=== PATIENT | male | born 1960 | race Asian ===

== ENCOUNTER 2018-06-28 23:20 | Inpatient (IN) | payer SELFPAY ==
[~2018-06-28] VITALS: Ht 162.6 cm; Wt 60.8 kg
[~2018-06-28 23:20] MED LIST: ALBU90OI INH; CYCL10 PO; Daily Multiple1 EACH PO; HYDACE5 PO; HYDCHL12.5 PO; LISI5 PO; Naprosyn500 MG PO; Norco 5-325 Ta1 EACH PO; OXYC5 PO; SERT25 PO; SERT50 PO; Senna8.6 MG PO; TIOT18 INH; TRAZ100 PO; TRAZ50 PO
[2018-06-28 23:54] LABS: BASOPHILS ABSOLUTE AUTO 0.01 K/mm3 (0.00-0.23); BASOPHILS PERCENT AUTO 0 % (0-2); EOSINOPHILS PERCENT AUTO 0 % (0-6); Hematocrit 41.2 % (37.0-53.0); Hemoglobin 14.1 g/dL (13.5-17.5); IMMATURE GRAN ABSOLUTE AUTO 0.01 K/mm3 (0.00-0.10); IMMATURE GRAN PERCENT AUTO 0 % (0-1); LYMPHOCYTES ABSOLUTE AUTO 0.94 K/mm3 (0.84-5.20); LYMPHOCYTES PERCENT AUTO 13 % (21-46); MONOCYTES PERCENT AUTO 4 % (4-13); Mean Corpuscular HGB 33.2 pg (26.0-34.0); Mean Corpuscular HGB Conc 34.2 g/dL (31.5-36.5); Mean Corpuscular Volume 97 fL (80-100); Mean Platelet Volume 8.6 fL (9.1-12.4); NEUTROPHILS ABSOLUTE AUTO 6.05 K/mm3 (1.96-9.15); NEUTROPHILS PERCENT AUTO 83 % (41-73); Platelet Count 145 K/mm3 (150-400); RDW Coefficient Variation 12.8 % (11.7-14.2); Red Blood Cell Count 4.25 M/mm3 (4.30-5.90); White Blood Cell Count 7.31 K/mm3 (4.00-11.30)
[2018-06-28] MEDS ORDERED: DOXY100 PO (23:54)
[2018-06-28] MEDS ORDERED: ALBU90OI INH (23:54)
[2018-06-29 00:11] LABS: Alanine Aminotransfer (ALT/SGP 52 U/L (12-78); Albumin, Blood 3.5 g/dL (3.4-5.0); Albumin/Globulin Ratio 0.9 (0.8-1.8); Alk Phos 107 U/L (50-136); Anion Gap 9 mmol/L (6-16); Aspartate Aminotrans (AST/SGOT 53 U/L (12-37); Bilirubin, Total 0.3 mg/dL (0.1-1.0); Blood Urea Nitrogen 12 mg/dL (8-24); Bun/Creatinine Ratio 19.1 (12.0-20.0); CO2, Blood 24 mmol/L (21-32); Calcium, Blood 8.5 mg/dL (8.5-10.1); Chloride, Blood 108 mmol/L (98-108); Creatinine, Blood 0.63 mg/dL (0.60-1.20); Globulin, Blood 3.8 g/dL (2.2-4.0); Glomerular Filtration Rate >60 (60-); Glucose, Blood 112 mg/dL (70-99); Potassium, Blood 3.5 mmol/L (3.5-5.5); Sodium, Blood 141 mmol/L (136-145); Total Protein, Blood 7.3 g/dL (6.4-8.2)
[2018-06-29 00:43] LABS: Magnesium, Blood 1.7 mg/dL (1.6-2.4); Troponin I <0.015 ng/mL (0.000-0.040)
[2018-06-29 00:50] LABS: PCO2 Arterial 33.5 mmHg (35-45); PO2 Arterial 62.4 mmHg (80-100); pH Blood Arterial 7.45 (7.35-7.45)
--- NOTE | 2018-06-29 03:32 | NUR ---
ASSUMPTION OF CARE: Pt arrived to ICU at 0205. Pt is alert, oriented and following commands, on BiPAP 12/6/25%, O2 96% with respirations in the 30's and prominent wheezes throughout. Pt sts SOB but feels improved since arrival to ED. HR SIT in the 140's. Hour long neb started by RT Villarreal. Call placed to Dr Aguiar obtained order PRN ativan, 0.5mg given with good effect noted. Call light in reach, instructed pt to not get out of bed. Family at bedside, will continue to monitor for safety and comfort.
--- NOTE | 2018-06-29 06:42 | NUR ---
SHIFT SUMMARY: Pt slept well throughout remainder of shift following x1 PRN ativan for anxiety. Tolerating BiPAP w/o difficulty, settings remain 12/6/25%, O2 93-99%, no signs of SOB/dyspnea when sleeping. Overall audible wheezing and work of breathing improved throughout shift. HR NSR to SIT 95-120. IV's remain patent and intact.
[2018-06-29 07:57] LABS: Adenovirus Detected (NOT DETECT); Bordetella pertussis Not Detected (NOT DETECT); Chlamydophila pneumoniae Not Detected (NOT DETECT); Coronavirus 229E Not Detected (NOT DETECT); Coronavirus HKU1 Not Detected (NOT DETECT); Coronavirus NL63 Not Detected (NOT DETECT); Coronavirus OC43 Not Detected (NOT DETECT); Human Metapneumovirus Not Detected (NOT DETECT); Human Rhinovirus/Enterovirus Not Detected (NOT DETECT); Influenza A Not Detected (NOT DETECT); Influenza A/2009-H1 Not Detected (NOT DETECT); Influenza A/H1 Not Detected (NOT DETECT); Influenza A/H3 Not Detected (NOT DETECT); Influenza B Not Detected (NOT DETECT); Mycoplasma pneumoniae Not Detected (NOT DETECT); Parainfluenza Virus 1 Not Detected (NOT DETECT); Parainfluenza Virus 2 Not Detected (NOT DETECT); Parainfluenza Virus 3 Not Detected (NOT DETECT); Parainfluenza Virus 4 Not Detected (NOT DETECT); Respiratory Syncytial Virus Not Detected (NOT DETECT)
--- NOTE | 2018-06-29 10:54 | NUR ---
PT ON BIPAP 01/10, FIO2 25%. SATS 98%. PT SLEEPING, AWAKENS TO VOICE. DENIES C/O PAIN. PT RESP 30-40, WITH WHEEZES T/O. PT TAKEN OFF BIPAP TO ASSESS RESP EFFORT, GIVE PO MEDS, AND FOR ORAL CARE. PT RESP INCREASED TO HIGH 40'S, BREATHING VERY LABORED, WITH INCREASED WHEEZING T/O. BIPAP OFF FOR ONLY A COUPLE OF MIN BEFORE IT WAS REPLACED. DR WAYNE IN TO SEE PT THIS AM; DR FREY CONSULTED THIS AM FOR RESP DISTRESS. PT TOLERATING BIPAP WELL AT THIS POINT. PT GIVEN SEVERAL MEDS INCLUDING SUPPOSITORY FOR SEVERE CONSTIPATION. WILL KEEP PT NPO EXCEPT FOR PO MEDS.
[2018-06-29 13:24] LABS: Hematocrit 36.7 % (37.0-53.0); Hemoglobin 11.9 g/dL (13.5-17.5); Mean Corpuscular HGB 33.1 pg (26.0-34.0); Mean Corpuscular HGB Conc 32.4 g/dL (31.5-36.5); Platelet Count 130 K/mm3 (150-400); RDW Coefficient Variation 13.3 % (11.7-14.2); RDW Standard Deviation 50.3 fL (35.1-46.3); Red Blood Cell Count 3.59 M/mm3 (4.30-5.90); White Blood Cell Count 7.19 K/mm3 (4.00-11.30)
[2018-06-29 13:32] LABS: Mean Corpuscular Volume 102 fL (80-100)
[2018-06-29 13:54] LABS: Alanine Aminotransfer (ALT/SGP 42 U/L (12-78); Albumin/Globulin Ratio 0.9 (0.8-1.8); Alk Phos 92 U/L (50-136); Anion Gap 8 mmol/L (6-16); Aspartate Aminotrans (AST/SGOT 47 U/L (12-37); Bilirubin, Total 0.2 mg/dL (0.1-1.0); Blood Urea Nitrogen 11 mg/dL (8-24); Bun/Creatinine Ratio 17.5 (12.0-20.0); CO2, Blood 20 mmol/L (21-32); Calcium, Blood 7.7 mg/dL (8.5-10.1); Chloride, Blood 113 mmol/L (98-108); Creatinine, Blood 0.63 mg/dL (0.60-1.20); Globulin, Blood 3.3 g/dL (2.2-4.0); Glomerular Filtration Rate >60 (60-); Glucose, Blood 203 mg/dL (70-99); Potassium, Blood 4.4 mmol/L (3.5-5.5); Sodium, Blood 141 mmol/L (136-145); Total Protein, Blood 6.3 g/dL (6.4-8.2)
--- NOTE | 2018-06-29 15:11 | NUR ---
BIPAP MASK REMOVED FOR PO MED AND ORAL CARE. PT DID NOT TOLERATE WELL. RESP INCREASED TO HIGH 40'S W AUDIBLE WHEEZES T/O, RESP VERY LABORED. BIPAP REPLACED IMMEDIATELY. DR FREY NOTIFIED. PT SATS DID DROP TO 90% ON 2L VIA N/C. PT ALSO DID NOT TOLERATE TURN W SHEET CHANGE ON BIPAP. LORAZEPAM 1MG IVP GIVEN. PT'S AT [facility].
[2018-06-29] MEDS ORDERED: MOME220I INH (15:44)
[2018-06-29] MEDS ORDERED: MIRT30 PO (15:44)
[2018-06-29] MEDS ORDERED: Hair, Skin & N1 EACH PO (15:45)
[2018-06-29] MEDS ORDERED: Naltrexone HCl50 MG PO (15:46)
[2018-06-29] MEDS ORDERED: STRIVERDI RESPIM4 GM INH (15:46)
[2018-06-29] MEDS ORDERED: B-1100 MG PO (16:02)
[2018-06-29] MEDS ORDERED: Viagra100 MG PO (16:02)
[2018-06-29] MEDS ORDERED: PRED10 PO (16:03)
[2018-06-29] MEDS ORDERED: CLON.1 PO (16:04)
[2018-06-29] MEDS ORDERED: DISU250 PO (16:05)
[2018-06-29] MEDS ORDERED: GENTEAL TEARS 015 ML BOTHEYES (16:05)
[2018-06-29] MEDS ORDERED: FOLI1 PO (16:06)
[2018-06-29] MEDS ORDERED: DULO30 PO (16:06)
[2018-06-29] MEDS ORDERED: GABA300 PO ×2 (16:07→16:08)
[2018-06-29] MEDS ORDERED: HYDACE25S PR (16:08)
[2018-06-29] MEDS ORDERED: IBUP600 PO (16:09)
[2018-06-29] MEDS ORDERED: MELA3 PO (16:10)
--- NOTE | 2018-06-29 19:30 | NUR ---
ASSUMPTION OF CARE: Pt alert and oriented, on BiPAP set to 12/25% with 02 96% and respirations 33. HR 92 NSR and BP stable. sts mild low back pain of 4/10, releived with repositioning. Pt respirations increased to 40's with activity. Peripheral IV to LFA patent and intact, SL. Powerglide to Rt upper arm patent and intact.
[2018-06-30 03:47] LABS: BASOPHILS PERCENT AUTO 0 % (0-2); EOSINOPHILS PERCENT AUTO 0 % (0-6); IMMATURE GRAN ABSOLUTE AUTO 0.02 K/mm3 (0.00-0.10); IMMATURE GRAN PERCENT AUTO 0 % (0-1); LYMPHOCYTES ABSOLUTE AUTO 0.82 K/mm3 (0.84-5.20); LYMPHOCYTES PERCENT AUTO 14 % (21-46); MONOCYTES ABSOLUTE AUTO 0.22 K/mm3 (0.16-1.47); MONOCYTES PERCENT AUTO 4 % (4-13); Mean Corpuscular HGB 33.4 pg (26.0-34.0); Mean Corpuscular HGB Conc 34.4 g/dL (31.5-36.5); Mean Platelet Volume 8.8 fL (9.1-12.4); NEUTROPHILS ABSOLUTE AUTO 4.98 K/mm3 (1.96-9.15); NEUTROPHILS PERCENT AUTO 83 % (41-73); Platelet Count 129 K/mm3 (150-400); RDW Coefficient Variation 13.1 % (11.7-14.2); RDW Standard Deviation 47.1 fL (35.1-46.3); Red Blood Cell Count 3.29 M/mm3 (4.30-5.90); White Blood Cell Count 6.04 K/mm3 (4.00-11.30)
[2018-06-30 03:49] LABS: Mean Corpuscular Volume 97 fL (80-100)
[2018-06-30 04:01] LABS: Anion Gap 4 mmol/L (6-16); Blood Urea Nitrogen 11 mg/dL (8-24); Bun/Creatinine Ratio 19.4 (12.0-20.0); CO2, Blood 27 mmol/L (21-32); Calcium, Blood 7.7 mg/dL (8.5-10.1); Chloride, Blood 111 mmol/L (98-108); Creatinine, Blood 0.57 mg/dL (0.60-1.20); Glomerular Filtration Rate >60 (60-); Glucose, Blood 193 mg/dL (70-99); Potassium, Blood 4.6 mmol/L (3.5-5.5); Sodium, Blood 142 mmol/L (136-145)
--- NOTE | 2018-06-30 05:59 | NUR ---
SHIFT SUMMARY: Pt tolerated BiPAP well throughout shift, set at 12/6/25%, VSS. Respirations remain 17-20's while resting increasing to 30's with activity. Pt slept throughout shift, easily rousable and alert and oriented while awake. Pt was able to tolerate short breaks from BiPAP for small sips of water and oral medications. Peripheral IV's remain patent and intact.
--- NOTE | 2018-06-30 07:47 | NUR ---
PT SLEEPING, AROUSES TO VOICE. LUNGS TIGHT W SCATTERED WHEEZES T/O, TOLERATING BIPAP WELL. RESP 20-30. DR WAYNE AT BEDSIDE. WILL ATTEMPT TO GIVE PT BREAK OF BIPAP TOLERATED TODAY.
--- NOTE | 2018-06-30 09:06 | NUR ---
PT TAKEN OFF BIPAP FOR BREAK AND PLACED ON 2L N/C. PT SOB WITH SPEECH, BUT TOLERATING BREAK BETTER THAN YESTERDAY. DR FREY IN TO SEE PT WHILE OFF BIPAP; CHEST X RAY ORDERED AND COMPLETED. 15MIN INTO BREAK PT REQUESTED TO USE BEDPAN. WITHIN TWO MIN AFTER PLACING ON BEDPAN PT WENT ONTO RESP DISTRESS, RESP 40-50, AUDIBLE WHEEZES T/O, SATS DROPPED INTO LOW 80'S, COLOR DUSKY. BIPAP IMMEDIATELY PLACED BACK ON PT, RT CALLED, DR FREY TO BEDSIDE TO ASSESS PT. ATIVAN 1MG, AND FENT 50MCG GIVEN ALONG W UDN THROUGH BIPAP. PRECEDEX ORDERED AND STARTED AT 0.5MCG. PT'S AT BEDSIDE. PT CALM W BIPAP ON AT THIS TIME, RESP 40, SATS 95% ON 30% FI02. HEART RATE 135, BP 151/88.
--- NOTE | 2018-06-30 10:29 | NUR ---
PT WENT INTO SEVERE RESP DISTRESS/FAILURE AROUND 1000; PRECEDEX AT 0.7MCG. DR FREY IN UNIT AND CAME TO BEDSIDE TO ASSESS PT. PT AND PT'S CONSENTED TO INTUBATION. PT INTUBATED AT 1016 W VERSED 10MG, PROPOFOL GTT. 7.5F ETT AT 25CM AT THE LIP. NS BOLUS BOLUS STARTED FOR SOME HYPOTENSION FOLLOWING INTUBATION. OG PLACED. SPUTUM SAMPLE SENT.
[2018-06-30 11:08] LABS: Source, Urine Catheter
[2018-06-30 11:14] LABS: Bilirubin, Urine Neg (Neg); Blood, Urine 1+ (Neg); Glucose Qualitative, Urine 1+ (Neg); Ketones, Urine Neg (Neg); Leukocyte Esterase, Urine Neg (Neg); Nitrite, Urine Neg (Neg); Protein, Urine 2+ (Neg); Specific Gravity, Urine 1.015 (1.003-1.022); Urobilinogen, Urine NORM (Normal)
[2018-06-30 11:18] LABS: Appearance, Urine Clear (Clear); Color, Urine Yellow (P-Yellow)
[2018-06-30 11:23] LABS: Bacteria Not Seen /hpf; Red Blood Cells, Urine Rare /hpf (0-2); Squamous Epithelial Cells Not Seen /hpf (Few)
[2018-06-30 11:24] LABS: White Blood Cells, Urine Not Seen /hpf (0-5)
[2018-06-30 11:56] LABS: Albumin, Blood 2.5 g/dL (3.4-5.0); Anion Gap 5 mmol/L (6-16); Blood Urea Nitrogen 11 mg/dL (8-24); CO2, Blood 27 mmol/L (21-32); Calcium, Blood 7.3 mg/dL (8.5-10.1); Chloride, Blood 110 mmol/L (98-108); Creatinine, Blood 0.61 mg/dL (0.60-1.20); Glomerular Filtration Rate >60 (60-); Glucose, Blood 176 mg/dL (70-99); Phosphorus, Blood 2.3 mg/dL (2.5-4.9); Potassium, Blood 3.8 mmol/L (3.5-5.5); Sodium, Blood 142 mmol/L (136-145)
--- NOTE | 2018-06-30 13:21 | NUR ---
PT SEDATED W PROPOFOL AT 60MCG, PRECEDEX AT 07.MCG, AND PRN FENT/VERSED IVP. PT AROUSES WITH MOVEMENT AND BECOMES AGITATED WITH HARSH COUGHING, STACKING BREATHS, INCREASED RESP, SITTING UP IN BED, PULLING ON RESTRAINTS. MCKEON CATH TEMP PROBE 16F PLACED. PT FEBRILE AT 101.5; TYLENOL PT GIVEN.
[2018-06-30 15:49] LABS: PO2 Arterial 76.7 mmHg (80-100)
--- NOTE | 2018-06-30 17:05 | NUR ---
BACK FROM CT OF CHEST; PT TOLERATED TRANSFER AND PROCEDURE WELL; REMAINED SEDATED T/O WITH VSS. TF STARTED AT 20ML/HR WHICH IS GOAL RATE. PROPOFOL AT 60MCG, PRECEDEX GTT AT 0.7MCG.
--- NOTE | 2018-06-30 22:40 | NUR ---
ASSUMPTION OF CARE: Assumed care of pt @ 1900. Pt intubated and sedated, vent set to AC 14/400/5/35%, pt tachypneic with respirations 20-30's, VSS. Peripheral IV x3 patent and intact. Covington catheter in place, draining clear yellow urine. During initial assessment @ approx 193, pt was not responsive to painful stimuli, gag and cough reflexes absent, propofol decreased at this time. At approx 2029, began excessively coughing and breath stacking, not improved with suctioning. PRN ativan and versed given with good effect noted. 2129 residuals noted at 350, readministered 250mL and discarded 100mL. Continuous tube feeding held for 1-2 pending reassessment of residuals.
--- NOTE | 2018-07-01 00:36 | NUR ---
POSSIBLE FLASH PULMONARY EDEMA/CALL TO DR FREY While providing care to pt increased vent peaks in the low 40's were noted. Pt was producing moderate amount of frothy secretions, coarse lung sounds were asucultated. Call was placed to Jen in RT, PEEP was increased to 10. Primary RN, Antolin, placed D5LR on standby. Peak pressures decreased to low 30's and lung sounds improved. A call was placed to Dr Frey at approx 0030 for concerns of possible flash pulmonary edema. Dr Frey ordered 20mg Lasix IV x1, DC'd IV maintenance fluids, maintain PEEP of 10, and an ABG in the morning.
[2018-07-01 04:12] LABS: BASOPHILS PERCENT AUTO 0 % (0-2); EOSINOPHILS PERCENT AUTO 0 % (0-6); Hematocrit 33.9 % (37.0-53.0); Hemoglobin 11.6 g/dL (13.5-17.5); Mean Corpuscular HGB 32.7 pg (26.0-34.0); Mean Corpuscular HGB Conc 34.2 g/dL (31.5-36.5); Mean Corpuscular Volume 96 fL (80-100); Mean Platelet Volume 9.1 fL (9.1-12.4); Platelet Count 137 K/mm3 (150-400); RDW Coefficient Variation 13.1 % (11.7-14.2); RDW Standard Deviation 46.2 fL (35.1-46.3); Red Blood Cell Count 3.55 M/mm3 (4.30-5.90); White Blood Cell Count 3.53 K/mm3 (4.00-11.30)
[2018-07-01 04:21] LABS: IMMATURE GRAN ABSOLUTE AUTO 0.03 K/mm3 (0.00-0.10); IMMATURE GRAN PERCENT AUTO 1 % (0-1); LYMPHOCYTES ABSOLUTE AUTO 0.64 K/mm3 (0.84-5.20); LYMPHOCYTES PERCENT AUTO 18 % (21-46); MONOCYTES ABSOLUTE AUTO 0.16 K/mm3 (0.16-1.47); MONOCYTES PERCENT AUTO 5 % (4-13); NEUTROPHILS PERCENT AUTO 77 % (41-73)
[2018-07-01 04:36] LABS: PCO2 Arterial 34.5 mmHg (35-45); pH Blood Arterial 7.47 (7.35-7.45)
[2018-07-01 04:37] LABS: PO2 Arterial 44.5 mmHg (80-100)
[2018-07-01 04:47] LABS: Albumin, Blood 2.9 g/dL (3.4-5.0); Anion Gap 6 mmol/L (6-16); Blood Urea Nitrogen 12 mg/dL (8-24); CO2, Blood 27 mmol/L (21-32); Calcium, Blood 7.7 mg/dL (8.5-10.1); Chloride, Blood 108 mmol/L (98-108); Creatinine, Blood 0.63 mg/dL (0.60-1.20); Glomerular Filtration Rate >60 (60-); Glucose, Blood 149 mg/dL (70-99); Phosphorus, Blood 1.9 mg/dL (2.5-4.9); Potassium, Blood 3.2 mmol/L (3.5-5.5); Sodium, Blood 141 mmol/L (136-145)
--- NOTE | 2018-07-01 06:27 | NUR ---
SHIFT SUMMARY: See previous note related to increase peak and order of lasix. Pt continued to cough with frothy secretions and have increased peaks, requiring increased amounts of PRN ativan, versed and increased FiO2. Placed another call to Dr Miller, received orders for 40mg Lasix IV and to increase PEEP to 12-13 from 10. Vent settings made per RT Jen. Pt continued to cough vent and stack breaths despite increased sedation and PRN medications. RT Jen changed ventilator mode to pressure control. Pt tolerated pressure control without difficulty, decreased work of breathing, appears calm and comfortable, respiratory rate decreased from 40's to high 20's. VSS. Increased urine output noted following lasix. Tmax this shift of 101.8, PRN tylenol given with no effect. Ice packs applied to neck, axillary and groin. Temperature now decreased to 100.9. Potassium of 3.2 and phos of 1.9 with morning labs, call placed to Dr Miller. Received order for K-Phos 30mm IV x1. Will continue to monitor until report to day shift.
--- NOTE | 2018-07-01 07:05 | NUR ---
ASSUMED CARE: RECEIVED REPORT FROM NOC RN AND STUDENT. PT IS CURRENTLY NOTED TO BE ON VENT SETTINGS OF PRESSURE CONTROL, BACK UP RATE OF 14, PEEP OF 12 AND FIO2 OF 50% SATTING >88% PER ORDERS. PROPOFOL IS RUNNING AT 60 MCG/KG/MIN, PRECEDEX NOTED AT 1 MCG/KG/HR PER DR ORDERS. TEMP IS NOTED TO BE ELIVATED, ICE PACKS ARE IN PLACE. WILL CONTINUE TO MONITOR AND ASSESS FURTHER
--- NOTE | 2018-07-01 11:57 | NUR ---
eCHOCARDIOGRAM COMPLETED.
--- NOTE | 2018-07-01 13:00 | NUR ---
INCREASED RESP: PT RESPRATORY RATE IS NOTED TO BE MUCH MORE LABORED AND INCREASED >50. TEMP IS NOTED TO BE STEADALY INCREASING WITH INCREASED BREATHING. RECEIVED ONE TIME ORDER FOR IBUPROFEN FOR ELIVATED TEMP. VERSED DRIP ORDERED TO HELP DECREASE LABORED BREATHING. FIO2 INCREASED TO 60% AND LASIX ORDERED.
--- NOTE | 2018-07-01 18:29 | NUR ---
SHIFT SUMMARY: PT HAD SOME RESPRATORY DISTRESS THIS SHIFT HAVING DIFFICULTY KEEPING RESPIRATION RATE BELOW 50. VERSED DRIP WAS STARTED AND PT RESPIRATORY RATE HAD BEEN MAINTAINING IN THE 30'S WITH A MUCH LESS LABORED BREATHING PATTERN. FIO2 WAS INCREASED TO 60% IN ORDER TO MAINTAIN A O2 SAT >88%. PRECEDEX WAS TITRATED UP TO TO 1.4 MCB/KG/HR FOR A SHORT TIME, ORDERED BY DR FREY. TUBE FEEDING WAS HELD THIS MORNING D/T RESIDUAL >250ML. PT CONTINUED TO RECEIVE MEDICATIONS THROUGH THE OG TUBE T/O THE DAY. WILL CONTINUE TO HOLD TUBE FEEDINGS T/O NOC SHIFT WELL D/T INCREASED RESIDUAL OF 500ML. PICC LINE WAS PLACED THIS SHIFT. TEMP GOT HIGH 102.2, IBUPROFIN WAS ORDERED AND ICE BAGS CONTINUED TO BE PLACED, CURRENTLY TEMP IS NOTED AT 99.3 AT THIS TIME. WILL CONTINUE TO MONITOR AND REPORT TO NOC RN.
--- NOTE | 2018-07-01 19:30 | NUR ---
ASSESSMENT/ASSUMED CARE PT INTUBATED AND NO MECH VENT. CURRENT VENT SETTINGS PC 12 AC 14 PEEP 12 FIO2 60%. LUNGS WITH CRACKLES IN THE BASES AND DECREASED. SCANT AMT SUCTIONED VIA ET TUBE. ORAL CARE DONE. HEART RATE REGULAR. BP STABLE. AFEBRILE,ICE PACKS REMOVED. BT+ HYPOACTIVE. OG CLAMPED. NO RESIDUAL. TUBE FEEDING TO BE RESTRATED IN AM. MCKEON CATH PATENT DRAINING CLEAR YELLOW URINE. PICC LINE TO LEFT UPPER DRSG INTACT. PROPOFOL AT 60 MCQ/KG/MIN WITH PRECEDEX AT 1 MCQ/KG/HR. VERSED GTT AT 4 MG/HR WITH NS AT 15 ML/HR. REPOSITIONED TO LEFT WITH HOB UP. BILAT SOFT WRIST RESTRAINTS ON.
--- NOTE | 2018-07-01 20:12 | NUR ---
PT RESP RATE UP TO 49 AFTER TURNING. SPO2 DOWN TO 89%. MED WITH FENTANYL 50 MCQ FOR SEDATION ADJUNCT.
--- NOTE | 2018-07-01 20:15 | NUR ---
FIO2 INCREASED RT INCREASED FIO2 TO 65%.
--- NOTE | 2018-07-02 | NUR ---
REASSESSMENT PT CONT INTUBATED AND ON [facility], INCH VENT. CURRENT VENT SETTING PC 12 AC 14 PEEP 12 FIO2 65%. LUNGS CLEAR WITH CRACKLES AND DECREASED IN THE BASES. HEART RATE REGULAR. BP STABLE. BT+ HYPERACTIVE. OG CLAMPED. ZERO RESIDUAL. BLOOD GLUCOSE 280, INSULIN GIVEN. ORAL CARE DONE AND PT REPOSITIONED TO BACK WITH EXT ELEVATED. PROPFOL DECREASED TO 55 MCQ/KG/MIN
[2018-07-02 03:40] LABS: BASOPHILS PERCENT AUTO 0 % (0-2); EOSINOPHILS PERCENT AUTO 0 % (0-6); Hematocrit 35.3 % (37.0-53.0); Hemoglobin 12.5 g/dL (13.5-17.5); IMMATURE GRAN ABSOLUTE AUTO 0.04 K/mm3 (0.00-0.10); IMMATURE GRAN PERCENT AUTO 2 % (0-1); LYMPHOCYTES ABSOLUTE AUTO 0.59 K/mm3 (0.84-5.20); LYMPHOCYTES PERCENT AUTO 25 % (21-46); MONOCYTES ABSOLUTE AUTO 0.09 K/mm3 (0.16-1.47); MONOCYTES PERCENT AUTO 4 % (4-13); Mean Corpuscular HGB 33.7 pg (26.0-34.0); Mean Corpuscular HGB Conc 35.4 g/dL (31.5-36.5); Mean Corpuscular Volume 95 fL (80-100); Mean Platelet Volume 9.5 fL (9.1-12.4); NEUTROPHILS ABSOLUTE AUTO 1.61 K/mm3 (1.96-9.15); NEUTROPHILS PERCENT AUTO 69 % (41-73); Platelet Count 149 K/mm3 (150-400); RDW Coefficient Variation 12.9 % (11.7-14.2); RDW Standard Deviation 45.4 fL (35.1-46.3); Red Blood Cell Count 3.71 M/mm3 (4.30-5.90); White Blood Cell Count 2.33 K/mm3 (4.00-11.30)
[2018-07-02 05:26] LABS: PCO2 Arterial 33.6 mmHg (35-45); PO2 Arterial 58.3 mmHg (80-100); pH Blood Arterial 7.51 (7.35-7.45)
--- NOTE | 2018-07-02 05:54 | NUR ---
SHIFT SUMMARY PT RESTING QUIETLY. CONT INTUBATED AND ON [facility] VENT. VENT SETTINGS PC 12 AC 14 PEEP 12 FIO2 65%. LUNGS COARSE AND DECREASED. SUCTIONED MOD AMT VIA ET TUBE. HEART RATE REGULAR, BP STABLE. NO EDEMA. BT+ HYPERACTIVE. PT INCONT TWO LIQUID BROWN STOOLS DURING THE NIGHT. OG TUBE CLAMPED, NO RESIDUALS DURING THE NIGHT. TUBE FEEDING TO BE RESTARTED THIS AM AFTER RESIDUAL CHECK AT 0800. MCKEON CATH PATENT DRAINING CLEAR YELLOW URINE. TURNED Q2HR. POWER GLIDE TO RIGHT UPPER ARM SALINE LOCKED, SITE CLEAR. PICC LINE TO LEFT UPPER ARM WITH PRECEDEX AT 0.9 MCQ/KG/HR DOWN FROM 1 MCQ/KG/HR, PROPOFOL AT 50 MCQ/KG/MIN DOWN FROM 60 MCQ/KG/MIN. VERSED GTT 4 MG/HR WITH NS AT 15 ML/HR. REPORT TO ON COMING NURSE.
--- NOTE | 2018-07-02 06:20 | NUR ---
TEMP TEMP UP TO 100.2 EVEN AFTER TYLENOL GIVEN AT 0500. COOL CLOTH TO FOREHEAD WTIH FAN ON. ICE PACKS BEHIND NECK, UNDER ARMS AND TO GROIN.
--- NOTE | 2018-07-02 07:30 | NUR ---
Recieved report from Kylah MCKINNEY. Patient supine in bed with HOB at 30 degrees. He is intubated and sedated. He has 7.5 ET and 25cm at lips, RT in room retaping. His vent settings are Pressure control AC 14, P 12, FiO2 65% and PEEP 12.0 and sats mid 90%'s. He has PICC ROBERTO with dressing intact and site WNL's and infusing Propofol 50 mcg/kg/min, Versed 4ml/hr, Precedex 0.9 mcg/kg/hr, NS TKO for Versed. He also has PowerGlide in JEREMIAH dressing intact and site WNL's and is flushed and SL'd. He has OG in place and residuals were 0. He has 16Fr temp foss draining to gravity yellow urine. He has bilateral SCD's in place and LE elevated with pillow. He has bilateral soft wrist restraints, they were removed and circulation chaeck and skin and were replaced for safety of line, tubes and ET.
--- NOTE | 2018-07-02 09:30 | NUR ---
Patient has large liquid stool and after cleaning up patient very agitated and resp. demand increased. Increaed Precedex up to 1.4 mch/kg/hr andf Propofol to 65 mcg/kg/min. Dr Rivera in room with patient and is writing new orders. Blood pressure cuff moved to right ankle and am able to get real numbers there and right wrist started only giving MAPS. She is planning on stopping versed and Precedex and starting Nimbex and Fentanyl. He is starting to get hypertensive 180 systolic and jay are 88-90 with agitation. at bedside with Dr Rivera and she is explaining her plans and stated that he was really sick and will have better idea tomorrow group home.
--- NOTE | 2018-07-02 11:30 | NUR ---
Patient started on Nimbex at 1 mcg/kg/hr and to keep train of 3-4. I have increased to 2.5 mcg/kg/hr and he was changed to AC 20, TV 400, FiO2 60% and PEEP 12 with sats low 90%. He is still hypertensive and ST and Dr Perez feels with more pain control he numbers will decrease. Started Vanco and Zosyn now.
[2018-07-02 11:33] LABS: Alanine Aminotransfer (ALT/SGP 79 U/L (12-78); Albumin, Blood 2.6 g/dL (3.4-5.0); Albumin/Globulin Ratio 0.7 (0.8-1.8); Alk Phos 80 U/L (50-136); Anion Gap 5 mmol/L (6-16); Aspartate Aminotrans (AST/SGOT 114 U/L (12-37); Bilirubin, Total 0.3 mg/dL (0.1-1.0); Blood Urea Nitrogen 15 mg/dL (8-24); Bun/Creatinine Ratio 25.5 (12.0-20.0); CO2, Blood 31 mmol/L (21-32); Calcium, Blood 8.1 mg/dL (8.5-10.1); Chloride, Blood 106 mmol/L (98-108); Creatinine, Blood 0.59 mg/dL (0.60-1.20); Globulin, Blood 3.8 g/dL (2.2-4.0); Glomerular Filtration Rate >60 (60-); Glucose, Blood 135 mg/dL (70-99); Phosphorus, Blood 3.5 mg/dL (2.5-4.9); Potassium, Blood 4.2 mmol/L (3.5-5.5); Sodium, Blood 142 mmol/L (136-145); Total Protein, Blood 6.4 g/dL (6.4-8.2)
[2018-07-02 12:16] LABS: PCO2 Arterial 47.9 mmHg (35-45); PO2 Arterial 64.7 mmHg (80-100); pH Blood Arterial 7.38 (7.35-7.45)
--- NOTE | 2018-07-02 13:24 | NUR ---
Patient is more relaxed and ABG drawn and given to Dr Rivera and she is happy with number. Increased to FiO2 80% to keep sats over 90%. Decreased Nimbex to 1.0 to keep train of 3-4. Fentanyl increased to 100 mcg/hr. No other changes. RR down to 27.
--- NOTE | 2018-07-02 15:30 | NUR ---
Patient doing well on current drip of nimbex and 1 mcg/kg/hr and Propofol at 50 m cg/kg/min. Reduced FiO2 to 60%. Still getting frothy secretions from ET. Fentanyl gtt remains at 100 mcg/hr. VSS. His systolic has come down to 120's systolic and HR 110.
--- NOTE | 2018-07-02 17:30 | NUR ---
No real significant changes with patient , gtt's, or vent settings.
--- NOTE | 2018-07-02 18:53 | NUR ---
No family present when I visited several times today. Haider is non-responsive. He appears well cared-for and comfortable. Provided prayer at bedside at family request. I will continue to visit as schedule permits.
[2018-07-02 20:06] LABS: PCO2 Arterial 53.7 mmHg (35-45); PO2 Arterial 60.5 mmHg (80-100); pH Blood Arterial 7.32 (7.35-7.45)
--- NOTE | 2018-07-02 20:07 | NUR ---
ASSUMED CARE RECEIVED REPORT FROM EDMUNDO. PT IS CURRENTLY SEDATED AND PARALYZED; CURRENT GTTPS: PROPOFOL 50MCG/KG/MIN, NIMBEX 2MCG/KG/MIN, NS 15ML/HR, AND FENTANYL 100MCG/HR. PT ON VENTILATOR AC20/400/12/60%. VITAL HIGH INFUSING VIA OG TUBE AT GOAL, 25ML/HR, RESIDUALS WERE ~40ML. PT HAS ONE SCD ON, BP CUFF AROUND OTHER CALF. PT HAS ELEVATED TEMP: 100.2; ICE PACKS AND AIR CONDITIONER IN PLACE. MCKEON HANGING TO GRAVITY CONTAINING YELLOW, CLEAR URINE.
--- NOTE | 2018-07-03 00:47 | NUR ---
PT SAT'ING HIGH 80'S, LOW 90'S. FIO2 TURNED UP TO 70%, TURNED POSITION, CPT ON BED INITIATED. NO OTHER CHANGES AT THIS TIME.
[2018-07-03 03:27] LABS: BASOPHILS ABSOLUTE AUTO 0.02 K/mm3 (0.00-0.23); BASOPHILS PERCENT AUTO 1 % (0-2); EOSINOPHILS PERCENT AUTO 0 % (0-6); Hematocrit 41.5 % (37.0-53.0); Hemoglobin 13.6 g/dL (13.5-17.5); Mean Corpuscular HGB 33.1 pg (26.0-34.0); Mean Corpuscular HGB Conc 32.8 g/dL (31.5-36.5); Mean Platelet Volume 9.4 fL (9.1-12.4); Platelet Count 178 K/mm3 (150-400); RDW Coefficient Variation 13.7 % (11.7-14.2); RDW Standard Deviation 50.8 fL (35.1-46.3); Red Blood Cell Count 4.11 M/mm3 (4.30-5.90)
[2018-07-03 03:28] LABS: IMMATURE GRAN PERCENT AUTO 3 % (0-1); LYMPHOCYTES ABSOLUTE AUTO 0.59 K/mm3 (0.84-5.20); LYMPHOCYTES PERCENT AUTO 18 % (21-46); MONOCYTES ABSOLUTE AUTO 0.09 K/mm3 (0.16-1.47); MONOCYTES PERCENT AUTO 3 % (4-13); Mean Corpuscular Volume 101 fL (80-100); NEUTROPHILS PERCENT AUTO 75 % (41-73)
[2018-07-03 03:45] LABS: Alanine Aminotransfer (ALT/SGP 99 U/L (12-78); Albumin, Blood 2.1 g/dL (3.4-5.0); Albumin/Globulin Ratio 0.5 (0.8-1.8); Alk Phos 98 U/L (50-136); Anion Gap 4 mmol/L (6-16); Aspartate Aminotrans (AST/SGOT 117 U/L (12-37); Bilirubin, Total 0.3 mg/dL (0.1-1.0); Blood Urea Nitrogen 19 mg/dL (8-24); Bun/Creatinine Ratio 32.8 (12.0-20.0); CO2, Blood 31 mmol/L (21-32); Calcium, Blood 8.2 mg/dL (8.5-10.1); Chloride, Blood 108 mmol/L (98-108); Creatinine, Blood 0.58 mg/dL (0.60-1.20); Globulin, Blood 4.1 g/dL (2.2-4.0); Glomerular Filtration Rate >60 (60-); Glucose, Blood 209 mg/dL (70-99); Magnesium, Blood 2.7 mg/dL (1.6-2.4); Phosphorus, Blood 3.4 mg/dL (2.5-4.9); Potassium, Blood 4.7 mmol/L (3.5-5.5); Sodium, Blood 143 mmol/L (136-145); Total Protein, Blood 6.2 g/dL (6.4-8.2)
[2018-07-03 05:20] LABS: PCO2 Arterial 58.9 mmHg (35-45); PO2 Arterial 61.8 mmHg (80-100); pH Blood Arterial 7.32 (7.35-7.45)
--- NOTE | 2018-07-03 06:27 | NUR ---
SHIFT SUMMARY PT REMAINS ON VENT AC20/400/12/75%. CURRENT GTTPS: NIMBEX 1.5MCG/KG/MIN, PROPOFOL 50MCG/KG/MIN, FENTANYL 100MCG/HR, AND NS 15ML/HR. NO SBT/SEDATION VACATION DUE TO INCREASED PEEP REQUIREMENT AND HIGH OXYGEN DEMANDS OF PT. PUPILS ARE REACTIVE; 3/3. PT HAS BEEN SINUS TACH, NSR THROUGHOUT SHIFT, WITH ONE NONSUSTAINED RUN OF AFIB, HR 150'S - AROUND 0200. BLOOD PRESSURE IMPROVED THROUGH NIGHT, SEE VS. PT IS COARSE IN LUNGS, DIMINISHED IN BASES. SPO2 HAS IMPROVED AND REMAINED MID 90'S, ALTHOUGH, ABG'S SHOW HYPOXEMIA (SEE LABS). NO BOWEL MOVEMENT TONIGHT, PASSING GAS THOUGH. RESIDUALS HAVE BEEN MINIMAL; <50ML. PT IS MAKING ADEQUATE UOP, 875ML.
--- NOTE | 2018-07-03 08:07 | NUR ---
Recieved report from Carrie MCKINNEY and Kesha MCKINNEY. Patient laying on left side intubated, sedated and paralyzed. He is intunbated with 7.5 ET and is 25cm at lips. Vent settings are AC 20, TV 400, FiO2 75%, PEEP 12.0 and sats 98%, and reduced to 55% and and currently sats 95%. He has been out of restraints since shift change last noc r/t paralytic. He has 16Fr Temp foss draining to gravity yellow urine. He has OG in place infusing Vital HP at 25ml/hr of goal rate and 30ml water flush q30/min. He has SCD's bilaterally to LE's. He is train of 3-4 and per order. He has PICC line to [facility] and is infusing Nimbex at 1.5 mcg/kg/hr, Propofol 50 mcg/kg/min, and Fentanyl 100mcg/hr. He has thin frothy secretions from ET small amounts. He also has PowerGlide in JEREMIAH flushed and SL'd. Both lines dressings intact and sites WNL's.
--- NOTE | 2018-07-03 10:00 | NUR ---
Increased Nimbex to 2mcg
--- NOTE | 2018-07-03 10:00 | NUR ---
Patient is a little agitated and increased nimbex to 2mcg/kg/hr. When repositioning he was having a hard time venmtilating and Dr Rivera stated to leave on left side or supine. Increased FiO2 to 100% and increased PEEP to [address] back om left side and he instantly increased sats to 97% and reduced FiO2 to 60% and he maintained high 90%'s and dropped PEEP back to [address] Rivera wants left at 70% FiO2. Systolic 120-140's and HR 110's
--- NOTE | 2018-07-03 12:14 | NUR ---
nNo sig nificant changes since last note and patient ventlating well on left side more than supine.
--- NOTE | 2018-07-03 15:19 | NUR ---
Patient has been resting without any current changes to gtt's, vent settings, or VS. Nimbex remains at 2 mcg/kg/hr. called to check on patient. Sats in the low to mid 90% on current settings. He remains on left side as he is unable to ventiolate on right.
--- NOTE | 2018-07-03 16:14 | NUR ---
Provided prayer at bedside. No family present. Made several attempts today to meet with family. I will remain available.
--- NOTE | 2018-07-03 18:00 | NUR ---
Patient continues to rest on sedation and paralytic. There remainbs no changes and have been keeping him ao left side for ventilation s he will not rise above 83% at 100% FiO2 and talked with Dr Rivera and will eval skin and re pillow on left side for skin integrity. I&O done, foss emptied. 190 ml residual reinfused and continue TF at 25ml/hr
--- NOTE | 2018-07-03 19:45 | NUR ---
ASSUMED CARE RECIEVED REPORT FROM EDMUNDO. PT IS ON VENT AC20/400/12/70%, SAT'ING 92%. CURRENT GTTPS: NIMBEX 2MCG/KG/MIN, PROPOFOL 50MCG/KG/MIN, FENTANYL 100MCG/HR, AND NS 15ML/HR. PT IS RECEIVING TUBE FEEDING, VITAL HIGH PROTEIN, CONTINUOUSLY AT A RATE OF 25ML/HR. PT'S MCKEON INTACT, HAVING TO GRAVITY; SCD'S IN PLACE. PT HAS LOW GRADE FEVER (SEE VS) - PLANNING TO MEDICATE WITH TYLENOL; AND FAN IS BLOWING ON PT CURRENTLY. PT IS CURRENTLY SEDATED AND PARALYZED ADEQUETLY. AM RN, EDMUNDO, ADVANCED OG TUBE 5CM PER DR AVINA.
[2018-07-03 20:19] LABS: PCO2 Arterial 61.4 mmHg (35-45); PO2 Arterial 50.7 mmHg (80-100); pH Blood Arterial 7.35 (7.35-7.45)
--- NOTE | 2018-07-03 21:17 | NUR ---
UPDATE; CALL TO DR AVINA PT ABG CAME BACK SHOWING WORSENING HYPOXEMIA AND HYPERCAPNIA. PT SAT'S IN 88-92 SUPINE, AND ON LEFT SIDE. CPT PERFORMED, AND MODERATE AMOUNT OF SECRETIONS CLEARED, FIO2 INCREASED TO 100%, BUT NO CHANGE IN SPO2. CALLED DR. AVINA AND UPDATED PT ON RESPIRATORY STATUS, ORDERED TO INCREASE PEEP TO 12 (UP TO 18 IF NEEDED). PT IS FEBRILE 100.8, ICE PACKS APPLIED, AIR CONDITIONER (FAN + ICE WATER) BLOWING ON PT; AND TYLENOL GIVEN PT.
[2018-07-03 21:30] LABS: Vancomycin, Trough 7.1 ug/mL (5.0-10.0)
--- NOTE | 2018-07-03 22:30 | NUR ---
UPDATE PT'S UPDATED ON PLAN OF CARE (RESPIRATORY STATUS, TEMEPRATURE). PT'S TEMP IS IMPROVING, CURRENTLY AT 99.3 (YOCASTA 100.8). PT SAT'ING AT 92-94 SUPINE, WITH FIO2 AT 100%.
--- NOTE | 2018-07-03 23:53 | NUR ---
UPDATE PT'S LEFT LEG REMAINS COOL TO TOUCH, OTHER EXTREMETIES HAVE WARMED UP. PEDAL PULSES ARE PRESENT AND EQUAL; +1. TUBE FEEDING ON HOLD. RESIDUALS WERE 325ML, MIXTURE OF PURPLE, AND CREAM COLOR, 250 REINSTILLED. WILL RECHECK IN ONE HOUR. PT TOLERATES LEFT SIDE EXCEPTIONALLY WELL, SPO2 96-97%. PREAK PRESSURES ARE FLOATING AROUND LOW 40'S.
--- NOTE | 2018-07-04 01:18 | NUR ---
UPDATE RESIDUALS WERE 75ML. PT ON RIGHT SIDE CURRENTLY, CHANCES ARE UNLIKELY THAT HE PROCESSED 175ML IN ONE HOUR; MOST LIKELY POSITIONAL, WILL CHECK AGAIN WHEN PT IS REPOSITIONED. TUBE FEED REMAINS ON HOLD.
[2018-07-04 04:08] LABS: Hematocrit 40.3 % (37.0-53.0); Hemoglobin 13.1 g/dL (13.5-17.5); Mean Corpuscular HGB 33.2 pg (26.0-34.0); Mean Corpuscular HGB Conc 32.5 g/dL (31.5-36.5); Mean Corpuscular Volume 102 fL (80-100); Mean Platelet Volume 9.3 fL (9.1-12.4); NRBC ABSOLUTE 0.03 K/mm3 (0.00-0.02); NRBC Auto 0.5 /100 WBC (0.0-0.2); Platelet Count 174 K/mm3 (150-400); RDW Coefficient Variation 13.9 % (11.7-14.2); RDW Standard Deviation 53.6 fL (35.1-46.3); Red Blood Cell Count 3.94 M/mm3 (4.30-5.90); White Blood Cell Count 5.73 K/mm3 (4.00-11.30)
[2018-07-04 04:26] LABS: Alanine Aminotransfer (ALT/SGP 108 U/L (12-78); Albumin, Blood 1.9 g/dL (3.4-5.0); Albumin/Globulin Ratio 0.5 (0.8-1.8); Alk Phos 121 U/L (50-136); Anion Gap 4 mmol/L (6-16); Aspartate Aminotrans (AST/SGOT 146 U/L (12-37); Bilirubin, Total 0.3 mg/dL (0.1-1.0); Blood Urea Nitrogen 22 mg/dL (8-24); Bun/Creatinine Ratio 45.9 (12.0-20.0); CO2, Blood 33 mmol/L (21-32); Calcium, Blood 8.3 mg/dL (8.5-10.1); Chloride, Blood 108 mmol/L (98-108); Creatinine, Blood 0.48 mg/dL (0.60-1.20); Globulin, Blood 4.2 g/dL (2.2-4.0); Glomerular Filtration Rate >60 (60-); Glucose, Blood 169 mg/dL (70-99); Magnesium, Blood 2.7 mg/dL (1.6-2.4); Phosphorus, Blood 2.6 mg/dL (2.5-4.9); Sodium, Blood 145 mmol/L (136-145); Total Protein, Blood 6.1 g/dL (6.4-8.2)
--- NOTE | 2018-07-04 04:31 | NUR ---
UPDATE CHECKED RESIDUALS WHILE PT WAS FLAT AND GOT 50ML OUT. RESTARTED TUBE FEED AT HALF RATE (12ML/HR). PT'S LEFT ARM IS SLIGHTLY MORE COOL TO TOUCH THAN LEFT; LEFT FOOT REMAINS COOL TO TOUCH WELL.
[2018-07-04 05:10] LABS: PO2 Arterial 58.8 mmHg (80-100); pH Blood Arterial 7.31 (7.35-7.45)
[2018-07-04 05:29] LABS: BASOPHILS PERCENT MAN 0 % (0-2); EOSINOPHILS PERCENT MAN 0 % (0-6); LYMPHOCYTES ABSOLUTE MAN 0.28 K/mm3 (0.84-5.20); LYMPHOCYTES PERCENT MAN 5 % (21-46); MONOCYTES ABSOLUTE MAN 0.17 K/mm3 (0.16-1.47); MONOCYTES PERCENT MAN 3 % (4-13); MYELOCYTE ABSOLUTE MAN 0.05 K/mm3 (0.00-0.00); MYELOCYTE PERCENT MAN 1 % (0-0); NEUTROPHILS ABSOLUTE MAN 5.21 K/mm3 (1.96-9.15); SEG NEUTROPHILS PERCENT MAN 91 % (41-73); TOTAL CELLS COUNTED 100
--- NOTE | 2018-07-04 06:08 | NUR ---
SHIFT SUMMARY PT REMAINS ON VENT AC20/400/14/100% AND SAT'ING 91-96 THROUGH MAJORITY OF SHIFT. PEEP WAS TURNED UP AFTER EVENING ABG (SEE LABS) , FROM 12-->14. [employer] ABG SHOWS IMPROVEMENT IN PAO2, BUT INCREASING RETENTION IN PACO2. CURRENT GTTPS: NIMBEX 2MCG/KG/MIN, PROPOFOL 50MCG/KG/MIN, FENTANYL 100MCG/HR, AND NS 15ML/HR. PT TOLERATES BEING ON HIS LEFT SIDE BEST, SUPINE IS OKAY AND DE-SAT'S ON RIGHT SIDE. PT'S LUNGS SOUND RHONCHI THROUGHOUT. CPT PERFORMED A FEW TIMES THROUGHOUT NIGHT, AND MODERATE AMOUNT OF CLEAR/WHITE, THIN SECRETIONS WERE SUCTIONED. PT HAS BEEN SINUS TACH/NSR WITH HR 88-115, SBP 140-200, LOPRESSOR GIVEN TWICE THROUGHOUT NIGHT AND WORKS WELL. PT IS RECEIVING VITAL HIGH PROTEIN TUBE FEEDING CONTINUOUSLY AT 15ML/HR. SEE PREVIOUS NOTES REGARDING RESIDUALS. PT IS COOL ON LEFT DISTAL UPPER/LOWER EXTREMETIES. PULSES EQUAL BILATERALLY +1 PEDAL, +2 RADIAL. UPDATED ON PLAN OF CARE.
--- NOTE | 2018-07-04 09:01 | NUR ---
ASSESSMENT- Pt remains sedated and paralyzed. Febrile with core temp's in the 99's. cooling measures in place with ice and fan. Vent settings AC 20 TV 400 Peep 14 FIO2 100%. CPT going at this time. TF at 12.5 with min resid this am. Legs cooler to touch than arms. PAS intact bilat. at bedside.
--- NOTE | 2018-07-04 09:32 | NUR ---
CARE ASSUMED CARE AND REPORT ASSUMED FROM GRACIELA THURMAN RN. PT ON VENT AC 20, 400, PEEP 14, FIO2 100%. SEDATED WTIH PROPOFOL AT 50 MCG. NIMBEX GTT AT 1.75; WILL ATTEMPT TO DECREASE PER MD REQUEST. AT BEDSIDE. NSR, HR 90S. BP 150S. FENTANYL GTT INFUSING AT 100 MCG/HR. PT APPEARS COMFORTABLE. JUST COMPLETED BED CPT. TEMP 99.9; FAN ON PT AND WILL MONITOR. WILL CONTINUE TO MONITOR.
--- NOTE | 2018-07-04 12:36 | NUR ---
REASSESSMENT SPOKE WITH [facility] RN ON PHONE. HE REQUESTED THAT WE CONTINUE NIMBEX TO HELP WITH RESPIRATING, OBTAIN FIBRINOGEN LEVELS, AND TURN OFF TUBE FEEDS. TF OFF AT THIS TIME. NIMBEX TURNED BACK UP TO 1.5 MCG/KG/MIN. PROPOFOL GTT REMAINS INFUSING AT 50 MCG. FENTANYL GTT REMAINS AT 100 MCG/HR. PT HAD EPIOSDE WHERE SPO2 WAS 86%-88%; RT NOTIFIED AND PT TURNED ONTO L SIDE. ETT SUCTIONED. SPO2 NOW 90%; WILL MONITOR. + TRAIN OF FOURS TO FOREHEAD AND PUPILS REACTIVE BUT SLUGGISH. VENT REMAINS AC 20, TV 400, PEEP 14, FIO2 100%. IN BUE RESTRAINTS AT THIS TIME. WILL CONTINUE TO MONITOR.
[2018-07-04 14:07] LABS: International Normalized Ratio 0.93; Prothrombin Time Results 8.9 Sec (9.7-11.5)
--- NOTE | 2018-07-04 16:54 | NUR ---
Provided calm presence, prayer and assurance to spouse throughout this shift. Shannon is tearful, but appropriate. She responded well to spiritual direction and disability counselor. Pt being transferred to [facility] soon.
[2018-07-04 18:13] LABS: PCO2 Arterial 31.7 mmHg (35-45); PO2 Arterial 103 mmHg (80-100); pH Blood Arterial 7.61 (7.35-7.45)
[2018-07-04 19:03] LABS: PCO2 Arterial 38.5 mmHg (35-45); PO2 Arterial 159 mmHg (80-100); pH Blood Arterial 7.54 (7.35-7.45)
--- NOTE | 2018-07-04 19:08 | NUR ---
[facility] TEAM ARRIVES [facility] TEAM ARRIVED AT 1508. THEY PREPARED SETUP FOR CANNULA INSERTION WHILE NURSING STAFF ASSISTED WITH SUPPLIES AND MEDICATION MANAGEMENT. MULITPLE DOSES OF FENTANYL IVP WERE GIVEN DURING PROCEDURE BY [facility] RN. VDR WAS ATTEMPTED AND PT WAS PLACED BACK ON [facility] DURING CANNULA INSERTION. LEVOPHED GTT STARTED DURING PROCEDURE. LR BOLUS X2 GIVEN, ALONG WITH NS BOLUS X1 PER [facility] TEAM. UPDATED BEFORE AND AFTER PROCEDURE. CARE TURNED OVER TO [facility] TEAM.
== END 2018-07-04 19:45 | disposition short-term general hospital (02) | DRG 208 ==
LOC: ER 23:20 → ICUE 06-29 02:04 → ICUW 06-29 02:04 → ICUE 06-29 02:11
PROVIDERS: Emergency Medicine; Hospitalist; Internal Medicine Critical Care Medicine; Internal Medicine Pulmonary Disease; ADMIT Internal Medicine
PROC: 0BH17EZ Insertion of Endotracheal Airway into Trachea, Via Natural or Artificial Opening (ICD-10-PCS; principal; 2018-06-29)
PROC: 5A1945Z Respiratory Ventilation, 24-96 Consecutive Hours (ICD-10-PCS; 2018-06-29)
DX: J96.01 Acute respiratory failure with hypoxia (principal); J18.1 Lobar pneumonia, unspecified organism; J44.0 Chronic obstructive pulmonary disease with (acute) lower respiratory infection; Z99.11 Dependence on respirator [ventilator] status; J80 Acute respiratory distress syndrome; D64.9 Anemia, unspecified; F32.9 Major depressive disorder, single episode, unspecified; I10 Essential (primary) hypertension; F10.20 Alcohol dependence, uncomplicated; F17.210 Nicotine dependence, cigarettes, uncomplicated; E87.6 Hypokalemia; J43.9 Emphysema, unspecified
CPT/HCPCS: 31500; 31720; 36415; 36569; 36600; 36620; 51702; 71045; 71275; 80048; 80053; 80069; 80202; 81001; 82803; 82947; 83605; 83735; 83880; 84100; 84145; 84484; 85025; 85027; 85384; 85610; 86850; 86900; 86901; 86923; 87040; 87070; 87205; 87486; 87581; 87633; 87798; 93005; 93010; 93306; 94002; 94003; 94640; 94644; 94660; 96365; 96366; 96368; 99285-25; C1751; C9113; J0360; J0456; J0696; J1650; J1815; J1940; J2060; J2250; J2543; J2704; J2920; J2930; J3010; J3370; J3480; J7030; J7050; J7060; J7120; P9016; P9041; P9046; Q9967

== ENCOUNTER 2018-08-26 14:05 | Day surgery (SDC) | payer OTHER ==
[~2018-08-26] VITALS: Ht 162.6 cm; Wt 45.7 kg
[~2018-08-26 14:05] MED LIST changes: +B-1100 MG PO; +CLON.1 PO; +DISU250 PO; +DOXY100 PO; +DULO30 PO; +FOLI1 PO; +GABA300 PO; +GENTEAL TEARS 015 ML BOTHEYES; +HYDACE25S PR; +Hair, Skin & N1 EACH PO; +IBUP600 PO; +MELA3 PO; +MIRT30 PO; +MOME220I INH; +Naltrexone HCl50 MG PO; +PRED10 PO; +STRIVERDI RESPIM4 GM INH; +Viagra100 MG PO
--- NOTE | 2018-08-26 14:27 | NUR ---
PT AMBULATED INTO [facility] USING WALKER. GANGRENE TO BOTH FEET. PT REPORTS 7/10 BILATERAL FOOT PAIN. HISTORY AND ALLERGIES REVIEWED. NPO STATUS CONFIRMED. LUNGS TIGHT THOUGH OUT WITH EXPIRATORY WZ. SATS>90% ON RA.FINGER TIPS ALSO NOTED TO BE NECROTIC. PT HAD RECENT HOSPITALIZATION FOR RESP FAILURE/ARDS AND WAS ON BOTH ECMO AND MULTIPLE PRESSORS.PT CIRCULATION WAS COMPROMISED A RESULT OF THE VASOCONSTRICTION FROM THE MULTIPLE PRESSORS.
[2018-08-26 14:37] LABS: Hematocrit 44.5 % (37.0-53.0); Hemoglobin 14.6 g/dL (13.5-17.5); Mean Corpuscular HGB 30.5 pg (26.0-34.0); Mean Corpuscular HGB Conc 32.8 g/dL (31.5-36.5); Mean Corpuscular Volume 93 fL (80-100); Mean Platelet Volume 8.3 fL (9.1-12.4); Platelet Count 258 K/mm3 (150-400); RDW Coefficient Variation 15.6 % (11.7-14.2); RDW Standard Deviation 53.1 fL (35.1-46.3); Red Blood Cell Count 4.78 M/mm3 (4.30-5.90); White Blood Cell Count 8.23 K/mm3 (4.00-11.30)
[2018-08-26] MEDS ORDERED: DOCU100 PO (14:39)
[2018-08-26 15:15] LABS: Alanine Aminotransfer (ALT/SGP 35 U/L (12-78); Albumin, Blood 3.8 g/dL (3.4-5.0); Albumin/Globulin Ratio 0.9 (0.8-1.8); Alk Phos 114 U/L (50-136); Anion Gap 10 mmol/L (6-16); Aspartate Aminotrans (AST/SGOT 43 U/L (12-37); Bilirubin, Total 0.5 mg/dL (0.1-1.0); Blood Urea Nitrogen 10 mg/dL (8-24); Bun/Creatinine Ratio 14.8 (12.0-20.0); CO2, Blood 20 mmol/L (21-32); Calcium, Blood 9.1 mg/dL (8.5-10.1); Chloride, Blood 108 mmol/L (98-108); Creatinine, Blood 0.68 mg/dL (0.60-1.20); Globulin, Blood 4.2 g/dL (2.2-4.0); Glomerular Filtration Rate >60 (60-); Glucose, Blood 93 mg/dL (70-99); Potassium, Blood 4.2 mmol/L (3.5-5.5); Sodium, Blood 138 mmol/L (136-145)
--- NOTE | 2018-08-26 16:39 | NUR ---
. PLEASANT RESP E/U PT MOVING AROUND ON BED WITHOUT PROBLEM, FEET ARE NOT ELEVATED AT THIS TIME DUE TO PT WANTING TO MOVE ABOUT STATES MOR COMFORTABLE FOR HIM
--- NOTE | 2018-08-26 16:50 | NUR ---
INTO STEP VIA [facility]. PT A&0X3. DENIES PAIN OR NAUSEA. LESLIE WRAP TO BILATERAL FEET-C/D/I. SURGICAL WALKING SHOES PLACED TO BOTH FEET. PT TOLERATING PO FLUIDS WELL AT THIS TIME.
--- NOTE | 2018-08-26 17:45 | NUR ---
REVIEWED DISCHARGE INSTRUCTIONS WITH BOTH PT AND HIS SPOUSE URIEL. BOTH VERBALIZE UNDERSTANDING. PT TRANSEFERED TO WHEELCHAIR WITH NO WEIGHT BEARING ON LEFT LOWER EXTREMITY AND VERY MINIMAL WEIGHT BEARING TO RIGHT LOWER EXTREMITY. BOTH DRESSINGS REMAINED C/D/I. PT SENT HOME WITH URINALS PER SPOUSE REQUEST AND 2 ICE PACKS. DISCHARGED TO HOME, OUT VIA WHEELCHAIR WITH RX, DISCHARGE INSTRUCTIONS, AND BELONGINGS ON HAND.
--- NOTE | 2018-08-27 14:48 | NUR ---
08/27/18 1448 Xena Bueno VERIFICATIONS: EDIT CHART.
[2018-11-14] MEDS ORDERED: GRALISE600 MG PO (12:37)
[2018-11-14] MEDS ORDERED: FOLI1 PO (12:38)
[2018-11-14] MEDS ORDERED: VITAMIN B-1100 MG PO (12:38)
[2018-11-14] MEDS ORDERED: TIOT18 INH (12:38)
[2018-11-14] MEDS ORDERED: Daily Multiple1 EACH PO (12:38)
[2018-11-14] MEDS ORDERED: Colace100 MG PO (12:39)
[2018-11-14] MEDS ORDERED: DISU250 PO (12:39)
[2018-11-14] MEDS ORDERED: DULO30 PO (12:39)
[2018-11-14] MEDS ORDERED: Naltrexone HCl50 MG PO (12:40)
[2018-11-14] MEDS ORDERED: TRAZ150T57 PO (12:40)
[2018-11-14] MEDS ORDERED: MIRT30 PO (12:40)
[2018-11-14] MEDS ORDERED: MELA3 PO (12:40)
[2018-11-14] MEDS ORDERED: Clonidine HCl0.1 MG PO (12:41)
[2018-11-14] MEDS ORDERED: HYDR1TAB94 PO (12:41)
== END 2018-08-26 17:45 | disposition home or self-care (01) ==
LOC: ORSCMMR 14:05 → ORD 15:30 → ORSCMMR 15:30
PROVIDERS: Anesthesiology; Podiatrist Foot & Ankle Surgery
PROC: 0Y6T0Z0 Detachment at Right 3rd Toe, Complete, Open Approach (ICD-10-PCS; principal; 2018-08-26 15:30)
PROC: 0Y6P0Z0 Detachment at Right 1st Toe, Complete, Open Approach (ICD-10-PCS; principal; 2018-08-26 15:30)
PROC: 0Y6X0Z0 Detachment at Right 5th Toe, Complete, Open Approach (ICD-10-PCS; principal; 2018-08-26 15:30)
PROC: 0Y6N0ZB Detachment at Left Foot, Partial 2nd Ray, Open Approach (ICD-10-PCS; principal; 2018-08-26 15:30)
PROC: 0Y6N0ZD Detachment at Left Foot, Partial 4th Ray, Open Approach (ICD-10-PCS; principal; 2018-08-26 15:30)
PROC: 0Y6N0Z9 Detachment at Left Foot, Partial 1st Ray, Open Approach (ICD-10-PCS; principal; 2018-08-26 15:30)
PROC: 0Y6N0ZC Detachment at Left Foot, Partial 3rd Ray, Open Approach (ICD-10-PCS; principal; 2018-08-26 15:30)
PROC: 0Y6V0Z0 Detachment at Right 4th Toe, Complete, Open Approach (ICD-10-PCS; principal; 2018-08-26 15:30)
PROC: 0Y6N0ZF Detachment at Left Foot, Partial 5th Ray, Open Approach (ICD-10-PCS; principal; 2018-08-26 15:30)
PROC: 0Y6R0Z0 Detachment at Right 2nd Toe, Complete, Open Approach (ICD-10-PCS; principal; 2018-08-26 15:30)
DX: I96 Gangrene, not elsewhere classified (principal); I99.8 Other disorder of circulatory system; I73.9 Peripheral vascular disease, unspecified; J44.9 Chronic obstructive pulmonary disease, unspecified; Z79.899 Other long term (current) drug therapy
CPT/HCPCS: 80053; 85027; 88305; 93005; 93010; A9270-GY; J2250; J3010; J7120

== ENCOUNTER 2018-11-22 13:44 | Day surgery (SDC) | payer OTHER ==
[~2018-11-22] VITALS: Ht 162.6 cm; Wt 51.7 kg
[~2018-11-22 13:44] MED LIST changes: +Clonidine HCl0.1 MG PO; +Colace100 MG PO; +DOCU100 PO; +GRALISE600 MG PO; +HYDR1TAB94 PO; +TRAZ150T57 PO; +VITAMIN B-1100 MG PO
[2018-11-22] MEDS ORDERED: CLON1 PO (14:20)
--- NOTE | 2018-11-22 17:46 | NUR ---
"DAY SURGERY RN | DISCHARGE VSS. A/O. Denies nausea. Tolerating PO fluids and food. Pain decreasing per patient statement. Discharge instructions and Rx given by Syd MCKINNEY. Taken in wheelchair by this RN to patient entrance. Family member was service car driver home."
--- NOTE | 2018-11-25 07:37 | NUR ---
11/25/18 0737 Xena Bueno VERIFICATIONS: EDIT CHART.
== END 2018-11-22 23:48 | disposition home or self-care (01) ==
LOC: ORSCMMR 13:44 → SDS 13:44 → ORSCMMR 13:45 → ORSCSDS 13:45 → SDS 23:48
PROVIDERS: Orthopaedic Surgery
PROC: 0X6V0Z3 Detachment at Right Little Finger, Low, Open Approach (ICD-10-PCS; principal; 2018-11-22 13:45)
PROC: 0X6S0Z3 Detachment at Right Ring Finger, Low, Open Approach (ICD-10-PCS; principal; 2018-11-22 13:45)
PROC: 0X6Q0Z3 Detachment at Right Middle Finger, Low, Open Approach (ICD-10-PCS; principal; 2018-11-22 13:45)
PROC: 0X6N0Z3 Detachment at Right Index Finger, Low, Open Approach (ICD-10-PCS; principal; 2018-11-22 13:45)
DX: I96 Gangrene, not elsewhere classified (principal); B19.20 Unspecified viral hepatitis C without hepatic coma; J44.9 Chronic obstructive pulmonary disease, unspecified; F17.210 Nicotine dependence, cigarettes, uncomplicated; Z79.899 Other long term (current) drug therapy
CPT/HCPCS: 88305; 88311; A9270-GY; J0690; J1100; J1885; J2250; J2405; J2704; J3010; J7120

== ENCOUNTER 2019-01-10 12:59 | Day surgery (SDC) | payer OTHER ==
[~2019-01-10] VITALS: Ht 162.6 cm; Wt 50.8 kg
[~2019-01-10 12:59] MED LIST changes: +BACTRIM DS TAB1 EACH PO; +CLON1 PO; +GABA400 PO; +IBU600 MG; +MIRT30ST PO; +THERA1 EACH PO; +TYLENOL325 MG; +Trazodone HCl300 MG PO
--- NOTE | 2019-01-10 13:53 | NUR ---
History, Chart, Medications and Allergies reviewed before start of procedure. Lungs clear T/O to Auscultation. Surgical site prepped with 2% Chlorhexidine cloth wipe. Patient confirms NPO status and agrees with scheduled surgery. Patient States Post-Procedure ride home has been arranged. Pre-Op teaching done. Pt verbalizes understanding.
--- NOTE | 2019-01-10 17:12 | NUR ---
PT AND VERABALIZED UNDERSTANDING OT DISCHARGE ORDERS DRSG CDI WIGGLES FINGERS DENIES PAIN OR NAUSEA EAGER TO GO HOME TOLERATES ICE WATER WITH OUT ANY PROBLEM DECLINED ANYTHING ELSE TO DRINK OR EAT
== END 2019-01-10 23:05 | disposition home or self-care (01) ==
LOC: ORSCMMR 12:59 → ORD 14:30 → ORSCMMR 23:05
PROVIDERS: Orthopaedic Surgery
PROC: 0X6R0Z3 Detachment at Left Middle Finger, Low, Open Approach (ICD-10-PCS; principal; 2019-01-10 14:30)
PROC: 0X6P0Z3 Detachment at Left Index Finger, Low, Open Approach (ICD-10-PCS; principal; 2019-01-10 14:30)
DX: M86.142 Other acute osteomyelitis, left hand (principal); I96 Gangrene, not elsewhere classified; Z89.029 Acquired absence of unspecified finger(s); I10 Essential (primary) hypertension; F17.210 Nicotine dependence, cigarettes, uncomplicated; J44.9 Chronic obstructive pulmonary disease, unspecified; Z79.899 Other long term (current) drug therapy
CPT/HCPCS: 87071; 87075; 87205; 88305; 88311; J0690; J2250; J2704; J3010; J7120

== ENCOUNTER 2019-01-24 10:55 | Day surgery (SDC) | payer OTHER ==
[~2019-01-24] VITALS: Wt 51.3 kg
--- NOTE | 2019-01-24 11:26 | NUR ---
History, Chart, Medications and Allergies reviewed before start of procedure. Patient confirms NPO status and agrees with scheduled surgery. Patient States Post-Procedure ride home has been arranged with his .
--- NOTE | 2019-01-24 11:29 | NUR ---
PATIENT LEFT DENTURES AT HOME.
[2019-01-24] MEDS ORDERED: Chantix0.5 MG PO (11:48)
[2019-01-24] MEDS ORDERED: MELA3 PO (11:48)
--- NOTE | 2019-01-24 12:12 | NUR ---
PATIENT'S METAL EARING TO LEFT EAR TAPED IN PLACE AND WAIVER SIGNED. PATIENT GAVE HIS GOLD RING TO HIS FOR SAFE KEEPING DURING SURGERY.
--- NOTE | 2019-01-24 14:30 | NUR ---
PT ARRIVED TO [facility] VIA STRETCHER. REPORT FROM HANK JEREZ. VSS. PT WITH NO C/O PAIN, JUST A "TINGLING SENSTAION" IN RIGHT HAND. PT TOLERATEING ORAL FLUIDS. DENIES FOOD AND WARM BLANKET AT THIS TIME. WILL CONTINUE TO MONITOR.
--- NOTE | 2019-01-24 14:51 | NUR ---
PT AMBULATED TO RESTROOM WITH RN ASSIST. STEADY GAIT. VSS.
--- NOTE | 2019-01-24 15:26 | NUR ---
Patient up to Ambulate independently. Gait steady. Discharge instructions reviewed with patient AND PT'S . Patient verbalizes understanding. Copy given to patient to take home. Dressing to procedure site clean, dry, intact with no visible drainage, swelling, erythema or bruising noted. Discharged via wheelchair to private car for ride home. PT STATED SATISFACTION OF CARE.
== END 2019-01-24 15:15 | disposition home or self-care (01) ==
LOC: ORSCMMR 10:55 → ORD 12:30 → ORSCMMR 12:30
PROVIDERS: Orthopaedic Surgery
PROC: 0X6Q0Z3 Detachment at Right Middle Finger, Low, Open Approach (ICD-10-PCS; principal; 2019-01-24 11:45)
PROC: 0X6S0Z3 Detachment at Right Ring Finger, Low, Open Approach (ICD-10-PCS; principal; 2019-01-24 11:45)
DX: I96 Gangrene, not elsewhere classified (principal); M86.141 Other acute osteomyelitis, right hand; Z89.029 Acquired absence of unspecified finger(s); J44.9 Chronic obstructive pulmonary disease, unspecified; F32.9 Major depressive disorder, single episode, unspecified; F17.210 Nicotine dependence, cigarettes, uncomplicated; Z79.899 Other long term (current) drug therapy
CPT/HCPCS: 88305; 88311; A9270-GY; J0690; J1100; J2250; J2405; J2704; J3010; J7120